=== PATIENT | male | born 1955 | race Caucasian/White ===

== ENCOUNTER → 2017-06-25 | Outpatient (CLI) | payer BC ==
[~2017-06-25] MED LIST: ASCO10003 PO; ASPI81TA28 PO; MULT-506 PO; NAPR1TAB9 PO
--- NOTE | 2017-06-25 15:07 | DIAGNOSTIC IMAGING REPORT ---
UPPER EXT JOINT WITHOUT CLINICAL HISTORY: 61 years-old Male with L SHOULDER PAIN, L BICEP TENDONITIS. Chronic shoulder pain with history of remote trauma. No reported left shoulder surgery. COMPARISON: Portable chest radiograph 07/11/2015. TECHNIQUE: Multiplanar, multi sequence MRI of the left shoulder was performed without intravenous contrast. FINDINGS: ROTATOR CUFF: There is mild supraspinatus tendinosis. Low-grade partial thickness articular sided tearing measuring 3 x 3 mm in AP and transverse dimension involves the anterior insertional fibers. No high-grade or full-thickness supraspinatus tear. Additionally, there is an intermediate grade tear of the posterior insertional infraspinatus tendon, 4 x 6 mm (for example nicely seen on image 7 of the coronal T2 series and image 17 of the sagittal T2 series). Mild associated infraspinatus tendinosis. Teres minor and subscapularis tendons are intact. There is mild subscapularis tendinosis. BICEPS TENDON: Evaluation of the long head biceps tendon is limited secondary to prominent patient motion on the axial series. There is a high-grade long segment split tear of the long head biceps tendon with moderate tendinosis of the intra-articular portion as seen on image 9 of the sagittal series. The split tear measures at least up to approximately 2.8 cm in craniocaudal dimension originating just proximal to the intertubercular groove extending distally. LABRUM: There is irregularity of the superior and anteroinferior labrum with associated labral fraying. No acute tear is identified. No displaced fragment or paralabral cyst. GLENOHUMERAL JOINT: Mild degenerative changes of the glenohumeral joint are noted with minimal marginal spurring. No intra-articular loose bodies identified. Trace joint effusion noted. ACROMIOCLAVICULAR JOINT: There is moderate AC joint osteoarthritis with capsular hypertrophy and marginal spurring. The acromion has a gently curved undersurface. There is trace subacromial/subdeltoid bursitis. OUTLET SPACES: The suprascapular notch and quadrilateral space are without obstructing or space occupying lesions. BONE MARROW: No focal abnormality, fracture or marrow occupying lesion. SOFT TISSUES: The periarticular soft tissues are unremarkable. IMPRESSION: 1. Limited evaluation of the long head biceps tendon secondary to prominent patient motion on the axial series. Within the limitations of the study, there is a high-grade split tear of the long head biceps tendon which extends just proximal to the intertubercular groove distally for a length of at least 2.8 cm. 2. Low-grade partial articular sided tear of the anterior insertional supraspinatus tendon. 3. Intermediate grade partial articular sided tear of the posterior insertional infraspinatus tendon. 4. Moderate AC joint osteoarthritis with trace subacromial/subdeltoid bursitis. The above report was generated using voice recognition software. It may contain grammatical, syntax or spelling errors. Electronically signed by: Jose Robert M.D. 06/25/2017 3:06 PM Dictated Date/Time: 06/25/2017 2:41 PM
== END | disposition home or self-care (01) ==
LOC: C.MRI 13:46
PROVIDERS: ATTEND Family Medicine Sports Medicine
DX: M75.22 Bicipital tendinitis, left shoulder (principal); M25.512 Pain in left shoulder

== ENCOUNTER → 2017-07-07 | Outpatient (CLI) | payer BC | END | disposition home or self-care (01) | LOC: C.RDSM 13:01 | PROVIDERS: ATTEND Physical Medicine & Rehabilitation Sports Medicine | DX: M25.512 Pain in left shoulder (principal) ==